=== PATIENT | female | born 1985 | race African-American/Black ===

== ENCOUNTER → 2017-02-03 | Outpatient (CLI) | payer BC ==
[~2017-02-03] MED LIST: ETONMIS VAGRING; MULT-506 PO
== END | disposition home or self-care (01) ==
LOC: C.LABSPEC 13:57
PROVIDERS: ATTEND Obstetrics & Gynecology
DX: Z34.83 Encounter for supervision of other normal pregnancy, third trimester (principal)

== ENCOUNTER 2017-02-19 04:13 | Inpatient (IN) | payer BC ==
[~2017-02-19] VITALS: Ht 157.5 cm; Wt 73.2 kg
[2017-02-19] MEDS ORDERED: LACTATED RINGER'S 1000ML 1,000 ML IV PRN (04:54)
[2017-02-19 04:56] VITALS: Ht 157.5 cm; Wt 73.2 kg
[2017-02-19] MEDS ORDERED: LACTATED RINGER'S 1000ML 500 ML IV PRN ×2 (05:22→11:08)
[2017-02-19 05:24] LABS: MEAN CELL VOLUME 88.7 fL (80-100); MEAN CORPUSCULAR HEMOGLOBIN 30.6 pg (25-34); MEAN CORPUSCULAR HGB CONC 34.5 g/dl (32-36); MEAN PLATELET VOLUME 8.6 fL (7.4-10.4); PLATELET COUNT 247 K/uL (130-400); RED BLOOD COUNT 3.72 M/uL (4.2-5.4)
[2017-02-19] MEDS ORDERED: OXYTOCIN 30 UNITS/500ML NSS IV PRN ×2 (05:30→15:45)
[2017-02-19] MEDS: LACTATED RINGER'S 1000ML 1,000 ML IV SCH ×2 (08:33→10:48)
[2017-02-19] MEDS ORDERED: BUPIVACAINE 0.25% 30 ML VIAL ONE (10:19)
[2017-02-19] MEDS ORDERED: FENTANYL CITRATE INJ 50 MCG/1 ML 2 ML VIAL ONE (10:20)
[2017-02-19] MEDS ORDERED: EpHEDrine SULFATE INJ 50 MG/ML AMP ONE (10:20)
[2017-02-19] MEDS ORDERED: FENTANYL 2MCG/ML ROPIV 1.25MG/ML 100ML BAG EPI ONE (10:21)
[2017-02-19] MEDS ORDERED: NALOXONE HCL INJ 1 MG in SODIUM CHLORIDE 0.9% 1000ML 1,000 ML IV PRN (11:08)
[2017-02-19] MEDS ORDERED: NALBUPHINE HCL INJ 10 MG/ML AMP IV PRN (11:15)
[2017-02-19] MEDS ORDERED: DiphenhydrAMINE HCL 50 MG/ML VIAL IV PRN (11:15)
[2017-02-19] MEDS ORDERED: NALOXONE HCL INJ 0.4 MG/1 ML VIAL/CARP IV PRN (11:15)
[2017-02-19] MEDS ORDERED: ONDANSETRON INJ 2 MG/ML 2 ML VIAL IV PRN (11:15)
[2017-02-19] MEDS ORDERED: FENTANYL 2MCG/ML ROPIV 1.25MG/ML 100ML BAG EPI PRN (11:15)
[2017-02-19] MEDS: EpHEDrine SULFATE INJ 50 MG/ML AMP IV PRN ×2 (12:59→13:22)
[2017-02-19] MEDS ORDERED: LACTATED RINGER'S 1000ML 1,000 ML IV SCH (15:38)
[2017-02-19] MEDS ORDERED: ACETAMINOPHEN/CODEINE 300/30MG TAB PO PRN ×2 (15:45)
[2017-02-19] MEDS ORDERED: BENZOCAINE 20% AER SPR 82.5 GM CAN EXT PRN (15:45)
[2017-02-19] MEDS ORDERED: LANOLIN OINT EXT PRN ×2 (15:45)
[2017-02-19] MEDS ORDERED: HYDROCORTISONE ACETATE 25 MG SUPP PR PRN (15:45)
[2017-02-19] MEDS ORDERED: ACETAMINOPHEN 325 MG TAB PO PRN (15:45)
[2017-02-19] MEDS ORDERED: SUPERCREAM 0.870 % 15GM JAR EXT PRN (15:45)
[2017-02-19] MEDS ORDERED: DIPHTHERIA/TETANUS/PERTUSSIS 0.5 ML SYR/VIAL IM. ONE (15:45)
--- NOTE | 2017-02-19 16:21 | DELIVERY SUMMARY ---
DATE OF OPERATION: 02/19/2017 VAGINAL DELIVERY NOTE DATE OF DELIVERY: 02/19/2017. PREOPERATIVE DIAGNOSIS: 1. Grimes intrauterine at 38 and 3. 2. Premature rupture of membranes. 3. Induction of labor. POSTOPERATIVE DIAGNOSIS: Same. PROCEDURE: Spontaneous vaginal delivery. SURGEON: Dr. Guaman. CAR PARKER: None. ESTIMATED BLOOD LOSS: 300. COMPLICATIONS: None. DISPOSITION: Stable in labor and delivery. DESCRIPTION: Josefina is a 2, para 1 who presented at 38 and 3/7 weeks for induction due to premature rupture of membranes. I accepted care of the patient at 8:30 in the morning on 02/19/2017. She continued to use Pitocin as well as an epidural for pain management and ultimately became completely dilated with an urge to push. I was notified when pushing began and approximately half an hour later I was in the room having been called for delivery. The patient had brought the head to [facility]. She was prepped for delivery. The perineum was washed and over the next several pushes she delivered the head of the infant in the occiput anterior position. A loose nuchal cord was then reduced and the remainder of the infants body delivered without any difficulty. The infant was placed on the maternal abdomen where the cord was double clamped and then cut by the father of the baby. The baby was making respiratory efforts and moving all 4 extremities equally immediately after delivery. Examination of the cervix, vagina and perineum revealed no lacerations requiring repair. The fundus was firm. Lochia was minimal. The placenta had delivered spontaneously and was noted to be intact with a 3-vessel cord that was marginally inserted and what appeared to be circumvallate insertion of the membranes. The placenta will be sent for pathology examination. I attest to the content of the Intraoperative Record and any orders documented therein. Any exceptio ns are noted below.
--- NOTE | 2017-02-19 18:39 | Anesthesia Procedure Note ---
Anesthesia Epidural Removal Nt Date & Time Feb 19, 2017 at 18:38 Vital Signs Pain Intensity: 0.0 Notes Mental Status: alert / awake / arousable, participated in evaluation Nausea / Vomiting: adequately controlled Pain: adequately controlled Airway Patency, RR, SpO2: stable & adequate BP & HR: stable & adequate Hydration State: stable & adequate Neuraxial Anesthesia: was administered Anesthetic Complications: no major complications apparent, pt satisfied with anesthetic care Epidural: removed without complications, with tip intact
[2017-02-19 20:55] VITALS: BP 104/67; PULSE 91; TEMP 36.9; O2SAT 98
[2017-02-19 23:55] VITALS: BP 111/74; TEMP 37.1
[2017-02-20] MEDS: IBUPROFEN 600 MG TAB PO PRN ×4 (00:10→21:24)
[2017-02-20 04:01] VITALS: BP 94/61; PULSE 83; TEMP 36.3
[2017-02-20 06:20] LABS: HEMATOCRIT 31.1 % (37-47)
[2017-02-20 07:24] VITALS: BP 98/67; PULSE 85; TEMP 36.7
[2017-02-20] MEDS: DOCUSATE SODIUM 100 MG CAP PO SCH (08:00)
--- NOTE | 2017-02-20 08:35 | Progress Note ---
Subjective Feb 20, 2017. Subjective conversation w/ patient, physical exam Ambulation: ambulating normally Voiding: no voiding problems Passing Gas: Yes Diet Tolerance: Regular Diet Lochia: Moderate Feeding Type: Breast Feeding Review of Systems Constitutional: No chills, No fever Respiratory: No cough Abdomen: No nausea, No vomiting Objective Vital Signs Date Time Temp Pulse Resp B/P Pulse Ox O2 Delivery O2 Flow Rate FiO2 02/20/17 08:00 Room Air 02/20/17 07:24 36.7 85 18 98/67 02/20/17 04:01 36.3 83 20 94/61 Room Air 02/19/17 23:55 37.1 18 111/74 Room Air 02/19/17 23:55 Room Air 02/19/17 20:55 36.9 91 16 104/67 98 Room Air 02/19/17 20:55 98 Room Air Physical Exam General Appearance: WELL-APPEARING, NO APPARENT DISTRESS Respiratory/Chest: no respiratory distress, no accessory muscle use Cardiovascular: no edema Abdomen: non tender, soft Fundus: Firm Extremities: no calf tenderness Laboratory Results Last 24 Hours Test 02/20/17 05:55 Hemoglobin 10.6 g/dL Hematocrit 31.1 % Assessment and Plan Post- Day#: 1 Continue Routine Care: Routine PP care
[2017-02-20] MEDS: PRENATAL VITAMIN TAB PO SCH (08:38)
[2017-02-20 11:50] VITALS: BP 99/62; PULSE 77; TEMP 37; O2SAT 99
[2017-02-20 15:30] VITALS: BP 107/71; PULSE 78; TEMP 36.8; O2SAT 100
[2017-02-20 23:45] VITALS: BP 127/84; PULSE 91; TEMP 36.7
--- NOTE | 2017-02-21 06:41 | Progress Note ---
Subjective Feb 21, 2017. Subjective conversation w/ patient, physical exam Ambulation: ambulating normally Voiding: no voiding problems Passing Gas: Yes Diet Tolerance: Regular Diet Lochia: Moderate Feeding Type: Breast Feeding Pain: denies any pain today Comment: Patient was seen at the bedside. No acute event overnight. Review of Systems Constitutional: No fever Respiratory: No cough, No shortness of breath Cardiac: No chest pain Abdomen: No nausea, No pain, No vomiting Female : No dysuria Denies headache Objective Vital Signs Date Time Temp Pulse Resp B/P Pulse Ox O2 Delivery O2 Flow Rate FiO2 02/20/17 23:45 36.7 91 18 127/84 Room Air 02/20/17 23:45 Room Air 02/20/17 15:30 100 Room Air 02/20/17 15:30 36.8 78 18 107/71 100 Room Air 02/20/17 15:30 36.8 78 18 107/71 100 Room Air 02/20/17 11:50 37.0 77 18 99/62 99 Room Air 02/20/17 08:00 Room Air 02/20/17 07:24 36.7 85 18 98/67 Physical Exam General Appearance: WELL-APPEARING, WD/WN Respiratory/Chest: chest non-tender, lungs clear, normal breath sounds Cardiovascular: regular rate, rhythm Abdomen: normal bowel sounds, soft Fundus: Firm, Relation to Umbilicus (at the umbilicus) Extremities: non-tender, no pedal edema Medications Current Inpatient Medications Medications (Trade) Dose Ordered Sig/Dylan Route Start Time Stop Time Status Last Admin Dose Admin Lactated Ringer's (Lr 1000ml) 1,000 ml @ 125 mls/hr Q8H IV 02/19/17 15:38 03/21/17 15:37 Oxytocin (Pitocin IV) 30 units UD PRN IV 02/19/17 15:45 03/21/17 15:44 Benzocaine (Dermoplast Aero Spr) 1 appln PRN PRN EXT 02/19/17 15:45 03/21/17 15:44 Cocaine HCl (Supercream 0.870% Cr) BID PRN EXT 02/19/17 15:45 03/05/17 15:44 Hydrocortisone Acetate (Anusol Hc Supp) [address] 02/19/17 15:45 03/21/17 15:44 Lanolin (Lanolin Oint) PRN PRN EXT 02/19/17 15:45 03/21/17 15:44 Prenat Multivit/ [place]/Iron/Folic Ac ( Vitamin Tab) 1 tab DAILY PO 02/20/17 08:00 03/22/17 07:59 02/20/17 08:38 1 TAB Ibuprofen (Motrin Tab) 600 mg Q4H PRN PO 02/19/17 15:45 03/21/17 15:44 02/20/17 21:24 600 MG Acetaminophen (Tylenol Tab) 650 mg Q6H PRN PO 02/19/17 15:45 03/21/17 15:44 Acetaminophen/ Codeine Phosphate (Tylenol w/ Codeine #3 Tab) 1 tab Q4H PRN PO 02/19/17 15:45 03/21/17 15:44 Acetaminophen/ Codeine Phosphate (Tylenol w/ Codeine #3 Tab) 2 tab Q4H PRN PO 02/19/17 15:45 03/21/17 15:44 Docusate Sodium (coLACE CAP) 100 mg BID PO 02/19/17 20:00 03/21/17 19:59 02/20/17 08:00 100 MG Assessment and Plan Post- Day#: 2 Continue Routine Care: A/P: This is a 31 y/o female, , s/p normal vaginal delivery. She is ambulating and clinically stable to discharge. - Vital signs are reviewed and WNL (Tmax 37 ) - Last Hgb 10.6 - Blood type A+, GBS neg, Rubella Immune - No signs of depression. - Routine care - Discussed resting, feeding, pain control, mastitis, control, follow up in 6 weeks and reasons to call sooner, if necessary. - Continue with pain medication as needed, and continue vitamins. - Encourage breast feeding and educate about breast feeding - Patient understands and keen for home. - Plan to discharge home Resident Physician Supervision Note: I was present with Dr. Brown during the history and exam. I discussed the case with the resident and agree with the findings and plan as documented in the note. Any exceptions or clarifications are listed here: [None] Documented By: Annabel Guaman
--- NOTE | 2017-02-21 07:05 | Discharge Instructions ---
Discharge Instructions Date of Service Feb 20, 2017. Admission Reason for Admission: 38 Weeks Gestation Of , Amniotic Fluid Discharge Discharge Diagnosis / Problem: s/p normal vaginal delivery Discharge Goals Goal(s): Routine recovery after delivery Medications Continue Dispensed Medications: supercream, dermaplast, tucks, lansinoh Activity Recommendations Activity Limitations: as noted below . Instructions / Follow-Up Instructions / Follow-Up ACTIVITY RECOMMENDATIONS: * Gradual return to full activity over the next 2-3 weeks. * No lifting - nothing heavier than baby over the next 2-3 weeks. * Do not engage in vigorous exercise, sexual activity or sports until cleared by your physician. * Do not drive or operate any motorized equipment until cleared by your physician. * You may shower/bathe daily. MEDICATIONS: For discomfort or pain, you may use Acetaminophen (Tylenol), Ibuprofen (Advil), or Naproxen (Aleve) following the package directions. For constipation you may use Colace following the package directions. BREAST CARE: If you are not breast feeding: * Wear a supportive bra 24 hours a day for one to two weeks. * Avoid stimulating your breasts and nipples as much as possible during the first few weeks after delivery. * When taking a shower, have the warm water hit your back, not breasts. * When your breasts feel full, apply ice packs. Usually three to four times a day helps ease the discomfort. * Take a mild pain medication (Tylenol / Motrin) when you are uncomfortable. If breast feeding: * Use breast milk to lubricate nipples. Lansinoh cream may be used for sore nipples. You do not need to remove cream prior to breast feeding. If using a different brand of cream, check the label for directions regarding removal of cream prior to nursing. * Wear a supportive bra. * If having problems with breasts or breast feeding, call a [employer] consultant or your health care provider. EPISIOTOMY CARE: After delivery, if you have an episiotomy (stitches), the following steps will ease discomfort and aid healing. * For the first 24 hours after delivery, place ice packs next to your episiotomy to help reduce swelling. * After the first 24 hour-period, sitz baths, either portable or in the tub, are suggested. A shower with a shower arm sprayed over the episiotomy may be comforting. * Vanita care should be done after each voiding and bowel movement. Squirt warm water from a plastic bottle over the perineum (region of the body between the anus and urinary opening) and pat dry. * Use Dermoplast to ease discomfort. Shake container. Crucible directly over the episiotomy. Place a Tucks on a clean sanitary pad next to your episiotomy. SPECIAL CARE INSTRUCTIONS: When you are discharged from the hospital, it is important for you to follow the instructions listed below: * During the first week at home, you should be able to care for yourself and your baby. In addition, the usual light household activities are encouraged. * Limit your activities to the way you feel. Do not try to clean the house or move furniture. Be sensible. * If you actively engage in sports and have done so up until the time of your delivery, you may resume these activities as soon as you feel able. This may take up to one month or even longer. Use good judgment. * Continue to take your vitamins for at least six weeks after the of your baby. * Your diet need not be limited unless you were on a special diet before your delivery. Breast-feeding mothers need around 2500 calories per day and at least 64-80 ounces of fluid per day (8 to 10 glasses). * You should eat foods from the four major food groups. Crash diets or fad diets are to be avoided. Eating lean meats, fresh fruits and vegetables, low-fat dairy products, high fiber foods and a regular exercise program, will help you get back to your pre- weight without putting your health at risk. * Constipation is sometimes a problem after delivery. Take a mild laxative as needed. If breast feeding, Milk of Magnesia is acceptable to use. You may use a suppository or Fleets enema if no episiotomy. * A daily shower or tub bath is suggested. Be sure to thoroughly and gently dry the perineum. * A bloody vaginal discharge will usually continue until around four weeks post . A small amount of bleeding may continue for as long as six weeks. Vaginal discharge changes from the bright red bleeding after delivery to pink then brownish and finally yellowish-pink before becoming white and disappearing. * Bleeding may increase with activity. Your first period may come in 4-8 weeks. If you are breast feeding, your period may be delayed even longer. * [place] (sex) can begin whenever both you and your partner feel comfortable and do not have any form of genital infection. It is recommended that you wait at least six weeks for internal and external healing to occur. If you have questions, please talk to your health care practitioner. A condom should be used to prevent infection and . * Foreplay, gentle intercourse and lubrication is very important the first several times to prevent pain. A water-based lubricant such as K-Y jelly or Astroglide may be used. * If you have RH negative blood and your baby is RH positive, you will receive RHOGAM by injection prior to discharge. The nurse will give you a card to keep with you that has the date and place that you received RHOGAM after delivery. * During your care, you had a Rubella screen done to check for the presence of rubella antibodies in your blood. If your test was negative, you will receive a Rubella vaccine prior to discharge. This vaccine may cause a fever, soreness at the injection site and flu-like symptoms. If these symptoms persist, notify your health care practitioner. is not advised for one month after a Rubella vaccine. * Verbalizes understanding of car seat law as reviewed with patient nursing. * Car Seat hand-out given and reviewed with patient by nursing. * Shaken baby information reviewed with patient by nursing. Call you doctor if: * Heavy bleeding (saturating several pads an hour) or passing clots the size of your fist. * A fever >101 degrees F (38.3 degrees C) on two occasions four hours apart and /or chills. * Unusual pain in the pelvic or vaginal areas. * "Baby Blues" lasting longer than two weeks. If you have any questions or concerns, call your health care practitioner at . FOLLOW UP VISIT: * Please call the office at to schedule a 6 week examination. It is important you keep this appointment. It is important for you to make arrangements for either yearly or twice yearly check-ups thereafter. Current Hospital Diet Patient's current hospital diet: Regular OB Diet Discharge Diet Recommended Diet: Regular Diet Pending Studies Studies pending at discharge: no Medical Emergencies . Who to Call and When: Medical Emergencies: If at any time you feel your situation is an emergency, please call 911 immediately. . Non-Emergent Contact Non-Emergency issues call your: Account Installer Call Non-Emergent contact if: you have a fever, temperature is above 101 . . "Provider Documentation" section prepared by Kelly Brown. VTE Core Measure Inpt VTE Proph given/why not?: Treatment not indicated
[2017-02-21 07:59] VITALS: BP 93/58; PULSE 94; TEMP 36.6
[2017-02-21] MEDS: DOCUSATE SODIUM 100 MG CAP PO SCH (08:33)
[2017-02-21] MEDS: PRENATAL VITAMIN TAB PO SCH (08:34)
[2017-02-21] MEDS: IBUPROFEN 600 MG TAB PO PRN ×2 (09:56→14:33)
[2017-02-21 15:25] VITALS: BP 103/72; PULSE 99; TEMP 36.5
[2017-02-21 16:45] VITALS: BP_DIAS 72; PULSE 99; TEMP 36.5
== END 2017-02-21 17:40 | disposition home or self-care (01) | DRG 775 ==
LOC: C.OPB 04:13 → C.LD 04:15 → C.OPB 04:58 → C.OBG 19:56
PROVIDERS: ADMIT Obstetrics & Gynecology; ATTEND Obstetrics & Gynecology
PROC: 3E033VJ Introduction of Other Hormone into Peripheral Vein, Percutaneous Approach (ICD-10-PCS; principal; 2017-02-19)
PROC: 10E0XZZ Delivery of Products of Conception, External Approach (ICD-10-PCS; principal; 2017-02-19)
DX: O42.02 Full-term premature rupture of membranes, onset of labor within 24 hours of rupture (principal); O69.81X0 Labor and delivery complicated by cord around neck, without compression, not applicable or unspecified; O69.89X0 Labor and delivery complicated by other cord complications, not applicable or unspecified; O43.113 Circumvallate placenta, third trimester; Z37.0 Single live birth; Z3A.38 38 weeks gestation of pregnancy